=== PATIENT | female | born 1985 | race Caucasian/White ===

== ENCOUNTER 2016-11-24 00:44 | Emergency (ER) | payer OTHER ==
[~2016-11-24] VITALS: Ht 168.9 cm; Wt 90.0 kg
[2016-11-24 00:45] VITALS: Ht 168.9 cm; Wt 90.0 kg
[2016-11-24 06:44] LABS: URINE BLOOD (Dip) POC 2+ (NEGATIVE)
[2016-11-24] MEDS ORDERED: CEPH-443 PO (06:51)
[2016-11-24] MEDS ORDERED: PHEN-537 PO (06:51)
[2016-11-24] MEDS ORDERED: NITROFURANTOIN (SR) 100 MG CAP PO ONE (07:00)
[2016-11-24] MEDS ORDERED: CEPHALEXIN 500 MG CAP PO ONE (07:00)
--- NOTE | 2016-11-24 07:15 | ERD ---
ER Documentation Chief Complaint Date/Time DATE: 11/24/16 TIME: 07:14 Chief Complaint painful,burning urination since this AM HPI 30-year-old female comes in with painful urination, urgency and frequency that started today. She states that she has been trying to drink increased fluids, without any change. No fevers, chills, nausea or vomiting. No hematuria or flank pain. ROS All systems reviewed and are negative except as per history of present illness. Medications Home Meds Active Scripts Phenazopyridine Hcl* (Pyridium*) 100 Mg Tab, 100 MG PO TID Y for URINARY PAIN, # 8 TAB Prov:LIANG DIAZ PA-C 11/24/16 Cephalexin* (Keflex*) 500 Mg Capsule, 500 MG PO QID for 7 Days, CAP Prov:LIANG DIAZ PA-C 11/24/16 Allergies Allergies: Coded Allergies: No Known Drug Allergies (Verified Allergy, Unknown, 04/18/09) PMhx/Soc History of Surgery: Yes (TONSILLECTOMY ) Anesthesia Reaction: No Hx Neurological Disorder: No Hx Respiratory Disorders: No Hx Cardiac Disorders: No Hx Psychiatric Problems: No Hx Miscellaneous Medical Probl: No Hx Alcohol Use: Yes (STATED OCCASSIONALLY ) Hx Substance Use: No Hx Tobacco Use: No Smoking Status: Never smoker Physical Exam Vitals Vital Signs Date Time Temp Pulse Resp B/P Pulse Ox O2 Delivery O2 Flow Rate FiO2 11/24/16 00:45 98.8 98 18 116/57 98 Physical Exam ] General: Well-developed, well-nourished. The patient appears in no acute distress. HEENT: Head is normocephalic, atraumatic. No scleral icterus. Pupils are equal , round, and reactive. Oral mucous membranes are moist. No pharyngeal erythema. Neck: Supple. Nontender. Lungs: Clear to auscultation. Normal air movement. Heart: Regular rate and rhythm. S1 and S2 are normal. No murmurs, gallops, or rubs. Abdomen: Soft, nontender, nondistended. Bowel sounds are normoactive. Extremities: No clubbing or cyanosis. Normal pulses. Moving extremities x 4. No weakness. Neurologic: Alert and oriented 3. No focal deficits. Skin: Normal turgor. No rash or lesions. Results 24 hrs Laboratory Tests Test 11/24/16 06:45 Bedside Urine Blood 2+ Bedside Urine Glucose (UA) Negative Bedside Urine Ketones (LAB) Negative Bedside Urine Leukocyte Esterase (L 3+ Bedside Urine Nitrite (LAB) Positive Bedside Urine Protein (LAB) 2+ Bedside Urine pH (LAB) 6.0 Current Medications Medications (Trade) Dose Ordered Sig/Rodrigo Route PRN Reason Start Time Stop Time Status Last Admin Dose Admin Cephalexin (Keflex) 500 mg ONCE ONCE PO 11/24/16 07:00 11/24/16 07:01 DC 11/24/16 06:55 Nitrofurantoin Macrocrystals (Macrobid) 100 mg ONCE ONCE PO 11/24/16 07:00 11/24/16 07:01 DC 11/24/16 06:55 Procedures/MDM ED course: She was given her first dose of Keflex and a dose of Pyridium. MDM: 31-year-old female comes in with positive nitrate and leukocyte esterase consistent with an acute urinary tract infection. This appears to be a uncomplicated lower urinary tract infection consistent with acute cystitis. There is no evidence of pyelonephritis, PID, cervicitis, or . Departure Diagnosis: Primary Impression: Acute UTI Condition: Good Patient Instructions: Understanding Urinary Tract Infections (UTIs) Additional Instructions: Call your primary care doctor TOMORROW for an appointment during the next 1-2 days.See the doctor sooner or return here if your condition worsens before your appointment time. LIANG DIAZ PA-C Nov 24, 2016 07:15
== END 2016-11-24 07:01 | disposition home or self-care (01) ==
LOC: FTE 00:44
DX: N39.0 Urinary tract infection, site not specified (principal)
CPT/HCPCS: 81003; Z7502; Z7610; 99283